=== PATIENT | female | born 1960 | race Caucasian/White ===

== ENCOUNTER 2018-11-16 11:59 | Day surgery (SDC) | payer BC ==
[~2018-11-16 11:59] MED LIST: ACETAMINOPHEN 1,000 MG/100 ML BTL IV ONE; CLINDAMYCIN PHOS/D5W 900MG 900 MG/50 ML BAG IVPB ONE; SCOPOLAMINE 1 PATCH TDSY TD ONE
[2018-11-16] MEDS ORDERED: LIDOCAINE 2% MDV (20MG/ML) 20ML VIAL IV ONE (12:00)
[2018-11-16] MEDS ORDERED: BUPIVACAINE 0.5% W/EPI MPF 30 ML VIAL IVP ONE (12:00)
[2018-11-16] MEDS ORDERED: DEXAMETHASONE 4 MG/ML 1ML VIAL IVP ONE (12:00)
[2018-11-16] MEDS ORDERED: KETAMINE HCL 100MG/1ML VIAL INJ ONE (12:00)
[2018-11-16] MEDS ORDERED: PROPOFOL 10 MG/ML VIAL IV ONE (12:00)
[2018-11-16] MEDS ORDERED: MIDAZOLAM HCL 2MG/2ML VIAL IV ONE (12:00)
[2018-11-16] MEDS ORDERED: KETOROLAC 30 MG/ML VIAL IVP ONE (12:00)
[2018-11-16] MEDS ORDERED: ONDANSETRON HCL IV 4 MG/2 ML VIAL IVP ONE (12:00)
[2018-11-16] MEDS ORDERED: MORPHINE SULFATE 4 MG/ML VIAL ONE (13:23)
--- NOTE | 2018-11-17 08:50 | Operative Note ---
DATE OF SURGERY: 11/16/2018 PREOPERATIVE DIAGNOSIS: Internal derangement of the left knee. POSTOPERATIVE DIAGNOSES: 1. Small grade 3 chondromalacia of patella. 2. Grade 3 chondromalacia of medial femoral condyle. 3. Split radial tear involving the posterior horn of the medial meniscus. 4. Flap tear involving the anterior horn of the lateral meniscus. OPERATION: 1. Left knee arthroscopy with partial medial and lateral meniscectomy. 2. Left knee arthroscopy with debridement of the patellofemoral and medial compartment. Staff Surgeon: Angel Correa MD Anesthesia: General. Preparation: Chloraprep. Individual Considerations: None. PROCEDURE: The patient was taken to the operating room and placed supine on the operating room table. The patient had a successful induction with general anesthetic. The left lower extremity was prepped and draped in the usual fashion. The patient had a superolateral inflow cannula placed. Skin was infiltrated with 0.5% Marcaine with epinephrine prior. A clear effusion was drained. The knee was then inflated with normal saline. An inferomedial and an inferolateral portal were made in a similar fashion. The arthroscope was introduced through the inferolateral portal up into the pouch. The patellofemoral compartment was basically normal except for some grade 3 change of the patella which was smoothed with a shaver. The notch was intact. No significant synovitis or loose bodies were seen in the pouch or either gutter. Medially, the medial femoral condyle had a lesion about the size of a half dollar centered at 45 degrees of flexion centrally with grade 3 change which was smoothed with a shaver. She had a radial split tear involving the posterior horn of the medial meniscus which was debrided back to a stable rim with a basket forceps and a shaver. In the notch, the cruciates were normal. Laterally, she had a flap tear involving the anterior horn of the lateral meniscus which was debrided back with a shaver and baskets to a stable rim. The remainder of the meniscus and articular cartilage was normal. The knee was then irrigated out with saline to remove loose floating debris. Portals were closed with yovani, and 20 mL of 0.25% plain Marcaine along with 4 mg of morphine and 40 mg of Depo-Medrol were injected into the knee. A sterile bulky compressive dressing was applied. The patient tolerated procedure well. Needle and sponge counts were correct. Estimated blood loss was minimal. She was taken back to recovery in good condition. There were no complications. HARSHIL
== END 2018-11-16 15:30 | disposition home or self-care (01) ==
LOC: SUR 11:59
PROVIDERS: ATTEND Orthopaedic Surgery
DX: S83.242A Other tear of medial meniscus, current injury, left knee, initial encounter (principal); S83.282A Other tear of lateral meniscus, current injury, left knee, initial encounter; M94.262 Chondromalacia, left knee; I10 Essential (primary) hypertension; E03.9 Hypothyroidism, unspecified
CPT/HCPCS: J1885; J2270; J2405; J3490